=== PATIENT | female | born 1960 | race Hispanic/Latino ===

== ENCOUNTER → 2019-08-16 | Outpatient (CLI) | payer OTHER ==
--- NOTE | 2019-08-16 09:43 | Diagnostic Imaging Report ---
Chest, PA and lateral. History: Cough, dysphasia. Comparison: None available. Discussion: The cardiomediastinal silhouette and pulmonary vasculature are within normal limits. The lungs are clear without evidence of consolidation or effusion. There are mild degenerative changes of the thoracic spine. IMPRESSION: No acute cardiopulmonary abnormality. Signed by: Milo Carranza MD on 08/16/2019 9:40 AM
== END ==
LOC: RAD 08:59
PROVIDERS: ATTEND Family Medicine
DX: R05 Cough (principal); R13.10 Dysphagia, unspecified
CPT/HCPCS: 71046

== ENCOUNTER → 2019-10-18 | Day surgery (SDC) | payer OTHER ==
[~2019-10-18] MED LIST: AMLODIPINE BESYL5 MG PO; MIDAZOLAM HCL 2 MG/2 ML VIAL ONE; OMEGA-31000 MG; PROPOFOL IV EMULSION 10 MG/ML 50 ML VIAL ONE
--- OUTSIDE RECORDS SUMMARY | 2019-10-18 11:12 | XMS REPORT ---
Author Author [facility] Address Unknown Phone Unavailable Care Team Providers Care Repairer Sash And Door Name Role Phone CHANTEL SARABIA Unavailable Unavailable Problems This patient has no known problems. Allergies, Adverse Reactions, Alerts This patient has no known allergies or adverse reactions. Medications This patient has no known medications. Results Test Description Test Time Test Comments Text Results Atomic Results Result Comments UPPER GI W/AIR CONTR 2019-08-30 10:28:00 [place] [address] Patient Name: JUSTINA CAMARENA MR #: [id number] : 1960 Age/Sex: 59/F Req #: [id number] [facility] Physician: Ordered by: CORNELL CONLEY, CHANTEL Schafer MD Report #: [id number] Location: DX Room/Bed: Procedure: [id number] DX/UPPER GI W/AIR CONTR Exam Date: 08/30/19 Exam Time: 1006 REPORT STATUS: Signed Barium swallow with upper GI MANAGER INFORMATION(S): Greg Tellez MD Comparison: None. Procedure: Barium swallow and upper GI fluoroscopic images obtained with air and barium contrast in a variety of positions. Fluoroscopy Time: 0.9 minutes Total Dose: 15.5 mGy DISCUSSION: [employer] LEAK TESTER: The bowel gas pattern is non-obstructive. SWALLOW: Grossly unremarkable. ESOPHAGUS: Mucosa is unremarkable. Predominately primary contractions. Moderate spontaneous gastroesophageal reflux. STOMACH: Unremarkable mucosal pattern. SMALL BOWEL: Bulb and sweep are normal. Duodenal-jejunal junction is in the normal expected position. Small bowel loops are normal in caliber and distribution. IMPRESSION: Moderate spontaneous gastroesophageal reflux. Otherwise, unremarkable fluoroscopic upper GI study. Signed by: Evon Tellez MD on 08/30/2019 10:29 AM Dictated By: EVON TELLEZ MD Transcribed By: HIREN on 08/30/19 102 COPY TO: CHANTEL WILSON CHEST 2 VIEWS 2019-08-16 09:39:00 [place] [address] Patient Name: JUSTINA CAMARENA MR #: [id number] : 1960 Age/Sex: 59/F Req #: [id number] Adm Physician: Ordered by: CHANTEL SARABIA MD, MD Report #: [id number] Location: [facility] Room/Bed: Procedure: [id number] DX/CHEST 2 VIEWS Exam Date: 08/16/19 Exam Time: 904 REPORT STATUS: Signed Chest, PA and lateral. History: Cough, dysphasia. Co mparison: None available. Discussion: The cardiomediastinal silhouette and pulmonary vasculature are within normal limits. The lungs are clear without evidence of consolidation or effusion. There are mild degenerative changes of the thoracic spine. IMPRESSION: No acute cardiopulmonary abnormality. Signed by: Milo Ibarra MD on 08/16/2019 9:40 AM Dictated By: MILO IBARRA MD Transcribed By: HIREN on 08/16/19939 COPY TO: CHANTEL SARABIA
[2019-10-18 13:14] LABS: BASOPHILS % 0.4 % (0.0-1.0); EOSINOPHILS # (AUTO) 0.1 (0.0-0.4); EOSINOPHILS % 1.3 % (0.0-6.0); HEMATOCRIT 40.5 % (34.2-44.1); HEMOGLOBIN 12.9 g/dL (12.0-16.0); LYMPHOCYTES # (AUTO) 2.5 (1.0-3.2); LYMPHOCYTES % 37.3 % (18.0-39.1); MEAN CORPUSCULAR HEMOGLOBIN 26.7 pg (28-32); MEAN CORPUSCULAR HGB CONC 31.9 g/dL (31-35); MEAN CORPUSCULAR VOLUME 83.9 fL (81-99); MONOCYTES # (AUTO) 0.6 (0.2-0.8); MONOCYTES % 9.3 % (4.4-11.3); NEUTROPHILS # (AUTO) 3.5 (2.1-6.9); NEUTROPHILS % 51.6 % (38.7-80.0); PLATELET COUNT 408 x10e3/uL (140-360); RED BLOOD COUNT 4.83 x10e6/uL (3.6-5.1); RED CELL DISTRIBUTION WIDTH 14.3 % (11.7-14.4)
[2019-10-18 15:29] VITALS: BP 128/78
== END | disposition home or self-care (01) ==
LOC: OR 11:09
PROVIDERS: ATTEND Internal Medicine Gastroenterology
DX: Z12.11 Encounter for screening for malignant neoplasm of colon (principal); K64.8 Other hemorrhoids; Z71.3 Dietary counseling and surveillance; I10 Essential (primary) hypertension; E66.3 Overweight; Z91.041 Radiographic dye allergy status; Z68.26 Body mass index [BMI] 26.0-26.9, adult
CPT/HCPCS: 36415; 45378; 85025; 93005; J2250; J2704

== ENCOUNTER → 2019-11-15 | Outpatient (CLI) | payer OTHER ==
[~2019-11-15] MED LIST changes: -MIDAZOLAM HCL 2 MG/2 ML VIAL ONE; -PROPOFOL IV EMULSION 10 MG/ML 50 ML VIAL ONE
--- NOTE | 2019-11-15 10:40 | Diagnostic Imaging Report ---
EXAMINATION: HIP RIGHT 2-3 VW (+/- PELVIS) INDICATION: Right hip pain COMPARISON: None FINDINGS: No acute fracture or dislocation. Alignment appears anatomic. Mild degenerative changes of the right hip joint. Mild gluteal enthesopathy. IMPRESSION: No acute osseous injury. Mild right hip degenerative changes. Signed by: Juan Francisco Tellez MD on 11/15/2019 10:37 AM
== END ==
LOC: RAD 09:52
PROVIDERS: ATTEND Family Medicine
DX: M25.551 Pain in right hip (principal)